=== PATIENT | female | born 1975 | race Caucasian/White ===

== ENCOUNTER 2018-09-02 15:39 | Emergency (ER) | payer SELFPAY ==
[2018-09-02 15:49] VITALS: BP 119/75; PULSE 105; TEMP 98.3; BMI 30.9
--- NOTE | 2018-09-02 15:52 | PDOC ---
Rapid Medical Evaluation Time Seen by Provider: 09/02/18 15:44 Medical Evaluation: 09/02/18 15:46 I have performed a brief in-person evaluation of this patient. The patient presents with a chief complaint of: 10/10 diffuse abdominal pain associated with multiple episodes of vomiting, diarrhea which started today. Also c/o diffuse headaches intermittently. Denies eating anything out of the ordinary, (+)sick contacts with similar symptoms, no recent international travel. (?)fever, subjective. Denies cold symptoms, denies nasal congestion. Pertinent physical exam findings: Pt looks in pain. Refuses flu swab, says that she cannot tolerate anything up her nose I have ordered the following: CBC, CMP, lipase, UA, UCG, HCG, FLu swab The patient will proceed to the ED for further evaluation. Discharge Disposition - Diagnosis Abdominal pain Qualifiers: Abdominal location: generalized Qualified Code(s): R10.84 - Generalized abdominal pain - Referrals - Patient Instructions - Post Discharge Activity
[2018-09-02 16:27] LABS: BASO % 0.1 % (0-2.0); EOS % 0.1 % (0-4.5); HEMOGLOBIN 14.9 GM/dL (10.7-15.3); LYMPH % 2.7 % (8-40); MCH 29.9 pg (25.7-33.7); MCHC 33.8 g/dl (32.0-36.0); MEAN CELL VOLUME 88.4 fl (80-96); MEAN PLT VOLUME 8.5 fl (7.5-11.1); MONO % 1.3 % (3.8-10.2); NEUT % 95.8 % (42.8-82.8); PLATELET COUNT 177 K/MM3 (134-434); RBC 4.97 M/mm3 (3.60-5.2); RDW 13.4 % (11.6-15.6); WHITE BLOOD COUNT 11.3 K/mm3 (4.0-10.0)
[2018-09-02 16:42] LABS: PROTHROMBIN TIME (PATIENT) 11.8 SEC (9.7-13.0)
--- NOTE | 2018-09-02 16:44 | PDOC ---
History of Present Illness - General Chief Complaint: Pain, Acute Stated Complaint: ABD/VOMITING Time Seen by Provider: 09/02/18 15:44 History Source: Patient Exam Limitations: No Limitations - History of Present Illness Initial Comments: 09/02/18 16:10 [id number] with h/o who p./w 05/14 diffuse abdominal pain, diffuse headache, subjective fever, NBNB vomiting, and nonbloody diarrhea which all began this morning at about 8:30am. She notes too many episodes of vomiting and diarrhea to count. She denies any strange or questionable foods, antibiotics in the past 2 months, camping or drinking from streams, or international travel. She has had sick contacts with similar symptoms. Did not get flu vaccination this year. No PCP and has not seen any doctor in >2 years. Past History - Past Medical History Allergies/Adverse Reactions: Allergies Allergy/AdvReac Type Severity Reaction Status Date / Time morphine Allergy Verified 09/02/18 15:52 COPD: No - Immunization History Immunization Up to Date: Yes - Suicide/Smoking/Psychosocial Hx Smoking History: Never smoked Information on smoking cessation initiated: No Review of Systems - Review of Systems Able to Perform ROS?: Yes Comments:: 09/02/18 16:44 GEN: fever, chills, malaise, generalized weakness, or weight change HEENT: no ear pain, sore throat, vision change, or eye pain CV: no chest pain, palpitations, lightheadedness, syncope, or edema RESP: no cough, wheezing, or SOB GI: abdominal pain, nausea, vomiting, diarrhea, no constipation, or white/black/ bloody stool : no dysuria, hematuria, incontinence, retention, bleeding, or discharge MSK: no neck/back pain, muscle weakness/pain, or joint swelling/pain NEURO: no headache, seizure, vertigo, numbness, tingling, or focal weakness PSYCH: no substance use, no behavior change SKIN: no jaundice, no rash ROS otherwise negative except as noted in HPI *Physical Exam - Vital Signs Last Vital Signs Temp Pulse Resp BP Pulse Ox 98.3 F 105 H 18 119/75 98 09/02/18 15:46 09/02/18 15:46 09/02/18 15:46 09/02/18 15:46 09/02/18 15:46 - Physical Exam Comments: 09/02/18 16:48 GENERAL: uncomfortable and a bit ill appearing, A/Ox4, mild distress, answers questions appropriately, significant other at bedside HEENT: PERRLA, EOMI, moist mucous membranes NECK/BACK: no midline ttp, no spinal stepoff or deformity, no hematoma, full ROM , neck supple CARDIOVASCULAR: regular rate/rhythm, normal S1S2, no MGR, strong peripheral pulses, capillary refill <2 seconds, extremities wwp, no edema LUNGS/RESPIRATORY: no respiratory distress, CTAB GI/ABDOMEN: symmetric [id number], normoactive BS, soft, moderate epigastric ttp, no midline pulsatile masses : no CVA tenderness EXTREMITIES: no muscle atrophy, no acute deformity SKIN: warm and dry, no pallor, no jaundice, no rash, no bruising, no skin breakdown, no cuts, no lesions NEUROLOGICAL: GCS 15, CN II-XII grossly intact, 5/5 strength proximally and distally, no facial droop Moderate Sedation - Procedure Monitoring Vital Signs: Procedure Monitoring Vital Signs Temperature 98.3 F 09/02/18 15:46 Pulse Rate 105 H 09/02/18 15:46 Respiratory Rate 18 09/02/18 15:46 Blood Pressure 119/75 09/02/18 15:46 O2 Sat by Pulse Oximetry (%) 98 09/02/18 15:46 ED Treatment Course - LABORATORY CBC & Chemistry Diagram: 09/02/18 16:00 09/02/18 16:00 Medical Decision Making - Medical Decision Making 09/02/18 16:51 Adult Pt p/w epigastric abdominal pain, vomiting, diarrhea, fever, and head-to- Initial Vital Signs Temp Pulse Resp BP Pulse Ox 98.3 F 105 H 18 119/75 98 09/02/18 15:46 09/02/18 15:46 09/02/18 15:46 09/02/18 15:46 09/02/18 15:46 Exam: As noted in Physical Exam section. DDX IBNLT: gastritis, PUD, cholecystitis, choledocholithiasis, cholangitis, pancreatitis, appendicitis, colitis, AAA/AD, ACS, renal stone, SBO, mesenteric/ bowel ischemia, bowel perforation, constipation, gas, etc W/U ordered: Labs as noted below TX ordered: Jed Helm Ofirmev IVF EKG: Reviewed; results as noted in ECG Review section. Laboratory Tests 09/02/18 09/02/18 09/02/18 16:00 16:00 16:00 WBC 11.3 H RBC 4.97 Hgb 14.9 Hct 44.0 MCV 88.4 MCH 29.9 MCHC 33.8 RDW 13.4 Plt Count 177 MPV 8.5 Absolute Neuts (auto) 10.8 H Neutrophils % 95.8 H Neutrophils % (Manual) 95.0 H Band Neutrophils % 4.0 Lymphocytes % 2.7 L Lymphocytes % (Manual) 0.0 L Monocytes % 1.3 L Monocytes % (Manual) 1 L Eosinophils % 0.1 Eosinophils % (Manual) 0.0 Basophils % 0.1 Basophils % (Manual) 0.0 Nucleated RBC % 0 Platelet Estimate Adequate PT with INR INR Sodium 139 Potassium 4.0 Chloride 107 Carbon Dioxide 24 Anion Gap 7 L BUN 14 Creatinine 0.8 Creat Clearance w eGFR > 60 Random Glucose 149 H Calcium 8.6 Phosphorus 1.9 L Magnesium 1.9 Total Bilirubin 0.6 AST 19 ALT 32 Alkaline Phosphatase 85 Total Protein 7.1 Albumin 3.7 Lipase 170 Beta HCG, Quant 3.4 Influenza A (Rapid) Influenza B (Rapid) Blood Type O POSITIVE Antibody Screen Negative 09/02/18 09/02/18 16:00 16:00 WBC RBC Hgb Hct MCV MCH MCHC RDW Plt Count MPV Absolute Neuts (auto) Neutrophils % Neutrophils % (Manual) Band Neutrophils % Lymphocytes % Lymphocytes % (Manual) Monocytes % Monocytes % (Manual) Eosinophils % Eosinophils % (Manual) Basophils % Basophils % (Manual) Nucleated RBC % Platelet Estimate PT with INR 11.80 INR 1.00 Sodium Potassium Chloride Carbon Dioxide Anion Gap BUN Creatinine Creat Clearance w eGFR Random Glucose Calcium Phosphorus Magnesium Total Bilirubin AST ALT Alkaline Phosphatase Total Protein Albumin Lipase Beta HCG, Quant Influenza A (Rapid) Negative Influenza B (Rapid) Negative Blood Type Antibody Screen Reassessment: patient states feeling much better, repeat exam without ttp of the abdomen. 09/02/18 19:15 The Pt has gotten significant relief of symptoms while in the ED. Workup is not concerning for emergency-level pathology at this time. They are appropriate for discharge with close outpatient follow up. They are comfortable with this plan and will follow up with their primary care provider in 1-3 days. They will take Motrin and/or Tylenol for pain. She will also take Prilosec OTC once a day for 2 weeks. Specific return precautions are discussed and they will come back to the ER if necessary. *DC/Admit/Observation/Transfer Diagnosis at time of Disposition: Abdominal pain Qualifiers: Abdominal location: generalized Qualified Code(s): R10.84 - Generalized abdominal pain Vomiting Qualifiers: Vomiting type: unspecified Vomiting Intractability: non-intractable Nausea presence: with nausea Qualified Code(s): R11.2 - Nausea with vomiting, unspecified Diarrhea Qualifiers: Diarrhea type: unspecified type Qualified Code(s): R19.7 - Diarrhea, unspecified - Discharge Dispostion Disposition: HOME Condition at time of disposition: Stable Decision to Admit order: No - Referrals - Patient Instructions Printed Discharge Instructions: DI for Vomiting -- Adult Additional Instructions: You were seen in the ER for abdominal pain, nausea, vomiting, and diarrhea. We did an exam and laboratories, which were essentially normal. We gave you medications for your symptoms which helped. After our assessment, we do not believe you are having a medical emergency at this time, and we believe you are safe to go home. Please take [id number] medications for the pain, and if you have burning-type acid reflux discomfort you can try an [id number] antacid like omeprazole 20 mg once a day. We are giving you referral information for a living advisor doctor in case you need one. Call their clinic [facility], tell them you were seen in the ER, and tell them you need an appointment. Please also follow up with your primary care provider in 1-3 days. Please come back to the ER at any time, 24 hours a day, for any new or worsening symptoms, like worsened abdominal pain, fever, inability to have a bowel movement or pass gas, chest pain, palpitations, or other symptoms. If you are having severe or life threatening symptoms, or symptoms that make it unsafe to drive or have someone drive you, please call 911. - Post Discharge Activity
[2018-09-02 16:46] LABS: ALBUMIN 3.7 g/dl (3.4-5.0); ALK PHOS 85 U/L (45-117); ANION GAP 7 MMOL/L (8-16); BILIRUBIN,TOTAL 0.6 mg/dL (0.2-1); BLOOD UREA NITROGEN 14 mg/dL (7-18); CALCIUM 8.6 mg/dL (8.5-10.1); CHLORIDE 107 mmol/L (98-107); CO2 24 mmol/L (21-32); CREATININE 0.8 mg/dL (0.55-1.3); GLUCOSE,RANDOM 149 mg/dL (74-106); LIPASE 170 U/L (73-393); MAGNESIUM 1.9 mg/dL (1.8-2.4); PHOSPHOROUS 1.9 mg/dL (2.5-4.9); SGOT/AST 19 U/L (15-37); SGPT/ALT 32 U/L (13-61); SODIUM 139 mmol/L (136-145); TOT PROT 7.1 g/dl (6.4-8.2)
[2018-09-02] MEDS ORDERED: ACETAMINOPHEN 1000 MG/100 ML VIAL (NON FORMULARY) IVPB ONE (16:50)
[2018-09-02] MEDS ORDERED: MAG HYDROX/AL HYDROX/SIMETH -MYLANTA- ORAL SUSPENSION PO ONE (16:50)
[2018-09-02] MEDS ORDERED: METOCLOPRAMIDE HCL INJECTION 10 MG/2 ML VIAL IVPB ONE (16:51)
[2018-09-02] MEDS ORDERED: SODIUM CHLORIDE 0.9% 500 ML INFUS.BAG IV ONE (16:55)
[2018-09-02] MEDS ORDERED: METOCLOPRAMIDE HCL INJECTION 10 MG/2 ML VIAL ONE (16:57)
[2018-09-02] MEDS ORDERED: MAG HYDROX/AL HYDROX/SIMETH 30 ML UNIT-DOSE CUP ONE (16:58)
[2018-09-02] MEDS ORDERED: ACETAMINOPHEN INJECTION 100 ML IVPB ONE (16:58)
[2018-09-02] MEDS ORDERED: FAMOTIDINE 20 MG/50 ML IVPB 20 MG/50 ML MG IVPB ONE ×2 (17:00→17:11)
--- NOTE | 2018-09-02 17:07 | PDOC ---
Attending Attestation - HPI HPI: 09/02/18 17:13 The patient is a year old female, with a significant past medical history of, who presents to the emergency department with epigastric pain, nausea, vomiting , and diarrhea since 8:30 am. She states she had multiple NBNB emesis episodes and states she is just dry heaving now. She states her abdomen feels empty now. She states she has family with similar symptoms at home. The patient denies chest pain, shortness of breath, headache and dizziness. The patient denies fever, chills, and constipation. The patient denies dysuria, frequency, urgency and hematuria. Allergies: morphine Documentation prepared by Ernestina Crespo, acting as medical driver for Merlyn Mckeon MD - Physicial Exam PE: 09/02/18 17:34 GENERAL: Well-appearing, well-nourished. No apparent distress. HEENT: Normocephalic, atraumatic. PERRL, EOM intact. Moist mucous membranes. CARDIOVASCULAR: Normal S1, S2. Regular rate and rhythm. PULMONARY: Clear to auscultation bilaterally. ABDOMEN: Soft, non-distended, non-tender. No rebound. No guarding. No palpable masses. BS wnl. EXTREMITIES: Normal ROM in all four extremities. No gross deformities. SKIN: Warm, dry. No rash NEUROLOGICAL: No focal neurological deficits. <Ernestina Crespo - Last Filed: 09/02/18 17:55> - Resident Resident Name: JerryMarylin - ED Attending Attestation I have performed the following: I have examined & evaluated the patient, The case was reviewed & discussed with the resident, I agree w/resident's findings & plan, Exceptions are as noted - HPI HPI: 09/02/18 17:04 43 yo female dev nausea,vomiting,diarrhea and headache today - Medical Decision Making 09/02/18 17:05 reviewed labs and there is mild leukocytosis,shift chemistries reveal [id number] diff includes gastroenteritis,cholecystitis,appendicitis 09/02/18 19:28 benign abd exam <Merlyn Mckeon - Last Filed: 09/02/18 19:29>
[2018-09-02 18:09] LABS: PLATELET ESTIMATE ADEQUATE
== END 2018-09-02 20:08 | disposition home or self-care (01) ==
LOC: JER 15:39
PROC: 3E033GC Introduction of Other Therapeutic Substance into Peripheral Vein, Percutaneous Approach (ICD-10-PCS; principal; 2018-09-02)
PROC: 3E033GC Introduction of Other Therapeutic Substance into Peripheral Vein, Percutaneous Approach (ICD-10-PCS; 2018-09-02)
PROC: 3E033NZ Introduction of Analgesics, Hypnotics, Sedatives into Peripheral Vein, Percutaneous Approach (ICD-10-PCS; 2018-09-02)
DX: R10.84 Generalized abdominal pain (principal); R11.2 Nausea with vomiting, unspecified
CPT/HCPCS: 36415; 80053; 83690; 83735; 84100; 84702; 85025; 85610; 86850; 86900; 86901; 87804; 99283-25; J0131